=== PATIENT | male | born 1960 | race Caucasian/White ===

== ENCOUNTER 2016-06-30 21:53 | Emergency (ER) | payer MEDICAID ==
[2016-06-30] MEDS ORDERED: LIDOCAINE/EPI 1% MDV 20 ML ONE (23:32)
[2016-07-01] MEDS ORDERED: DILAUDID 1 MG/ML AMP ONE (00:24)
[2016-07-01] MEDS ORDERED: ONDANSETRON 4 MG VIAL ONE (00:24)
== END 2016-07-01 02:10 | disposition other institution (70) ==
LOC: EEVIPCON 21:53 → ER 21:53
DX: S06.0X0A Concussion without loss of consciousness, initial encounter (principal); Y04.2XXA Assault by strike against or bumped into by another person, initial encounter; Y92.511 Restaurant or cafe as the place of occurrence of the external cause; S01.91XA Laceration without foreign body of unspecified part of head, initial encounter; S01.412A Laceration without foreign body of left cheek and temporomandibular area, initial encounter; S20.319A Abrasion of unspecified front wall of thorax, initial encounter; S05.11XA Contusion of eyeball and orbital tissues, right eye, initial encounter; H53.131 Sudden visual loss, right eye; F10.129 Alcohol abuse with intoxication, unspecified; S02.19XA Other fracture of base of skull, initial encounter for closed fracture; S02.2XXA Fracture of nasal bones, initial encounter for closed fracture; J32.8 Other chronic sinusitis
CPT/HCPCS: 36415; 70450; 70486; 71020; 72100; 72125; 72131; 80053; 80320; 85025; 85610; 85730; 96374; 96375